=== PATIENT | male | born 1980 | race African-American/Black ===

== ENCOUNTER → 2025-02-02 | Emergency (ER) | payer OTHER ==
[2025-02-02] MEDS: PERTUSS(ACELL),DIPH,TET/PF 0.5 ML SYRINGE [ADULT] IM. ONE (20:29)
== END | disposition home or self-care (01) ==
LOC: EMS 18:42
DX: S80.211A Abrasion, right knee, initial encounter (principal); S80.212A Abrasion, left knee, initial encounter; Z23 Encounter for immunization; W19.XXXA Unspecified fall, initial encounter; Y93.01 Activity, walking, marching and hiking; Y92.89 Other specified places as the place of occurrence of the external cause; Y99.8 Other external cause status
CPT/HCPCS: 90471; 90715; 99283